=== PATIENT | male | born 1955 | race Two or more races ===

== ENCOUNTER 2020-03-13 09:38 | Emergency (ER) | payer OTHER ==
--- NOTE | 2020-03-13 10:10 | ER Document Report ---
ED Medical Screen (RME) - General Chief Complaint: Leg Pain Stated Complaint: RIGHT LEG PAIN,SWELLING Time Seen by Provider: 03/13/20 10:08 Mode of Arrival: Ambulatory Information source: Patient Notes: 64-year-old male patient presents emergency department chief complaint of right lower extremity swelling and pain. Patient reports swelling at the calf and upper leg near his thigh. He reports there is a bruised area. He denies any history of DVTs but has been checked for them in the past. He is wearing jeans so exam is limited in triage. He does have swelling noted to the right calf. I have greeted and performed a rapid initial assessment of this patient. A comprehensive ED assessment and evaluation of the patient, analysis of test results and completion of the medical decision making process will be conducted by additional ED providers. I have specifically instructed the patient or family members with the patient to immediately return to any nursing staff should anything change in the patient's condition or with their chief complaint. - Related Data Allergies/Adverse Reactions: No Known Allergies Allergy (Verified 03/13/20 10:02) Past Medical History - Social History Chew tobacco use (# tins/day): No Frequency of alcohol use: Heavy Drug Abuse: None Physical Exam - Vital signs Vitals: Temp Pulse Resp BP Pulse Ox 98.2 F 108 H 18 121/73 97 03/13/20 09:50 03/13/20 09:50 03/13/20 09:50 03/13/20 09:50 03/13/20 09:50 Course - Vital Signs Vital signs: Temp Pulse Resp BP Pulse Ox 98.2 F 108 H 18 121/73 97 03/13/20 10:02 03/13/20 09:50 03/13/20 09:50 03/13/20 09:50 03/13/20 09:50
[2020-03-13] MEDS ORDERED: ASPIRIN 325 MG TABLET PO ONE (10:37)
--- NOTE | 2020-03-13 11:04 | ER Document Report ---
ED Extremity Problem, Lower - General Chief Complaint: Leg Pain Stated Complaint: RIGHT LEG PAIN,SWELLING Time Seen by Provider: 03/13/20 10:08 Mode of Arrival: Ambulatory Notes: HPI: 64-year-old male with no past medical history on no medications who presents today with the onset 3 days ago of some pain to the right inner and lateral thigh. He states it radiates down the leg. He started to have pain also to the right calf. No recent trauma. Patient states he had some swelling to his ankle couple years ago that resolved with water pills. He does not take the water pills any longer. Patient is unsure whether this occurred when he was carrying some beer from his garage. He denies any specific joint pain such as the hip or knee. He denies any chest pain or shortness of breath. No history of DVT/PE. No recent trips or travel. ROS: See HPI All other review of systems reviewed and otherwise negative Reviewed vital signs and nursing note as charted by RN. PHYSICAL EXAM: CONSTITUTIONAL: Alert and oriented and responds appropriately to questions. Well-appearing; well-nourished HEAD: Normocephalic; atraumatic CARD: Regular rate and rhythm; no murmurs; symmetric distal pulses RESP: Normal chest excursion without splinting or tachypnea; breath sounds clear and equal bilaterally; no wheezes, no rhonchi, no rales ABD/GI: Normal bowel sounds; non-distended; soft, non-tender; no palpable org anomegaly or masses BACK: The back appears normal and is non-tender to palpation EXT: Patient does have normal range of motion including the right leg including full flexion of the hip and knee. Patient does have some swelling to the thigh down to the ankle. No point tenderness, crepitus, or fluctuance appreciated. No perineal or scrotal swelling or pain. Patient's feet are bilaterally warm but the patient does have a dorsalis pedis pulse that is slightly diminished to the right foot. Strong pulses to the left foot SKIN: Above NEURO: CN 2-12 intact; 5/5 bilateral upper and lower extremity strength with sensation intact to light touch PSYCH: The patient's mood and manner are appropriate. Grooming and personal hygiene are appropriate. - Related Data Allergies/Adverse Reactions: No Known Allergies Allergy (Verified 03/13/20 10:02) Past Medical History - General Information source: Patient - Social History Smoking Status: Current Every Day Smoker Chew tobacco use (# tins/day): No Frequency of alcohol use: Heavy Drug Abuse: None Family History: Reviewed & Not Pertinent Patient has homicidal ideation: No Physical Exam - Vital signs Vitals: Temp Pulse Resp BP Pulse Ox 98.2 F 108 H 18 121/73 97 03/13/20 09:50 03/13/20 09:50 03/13/20 09:50 03/13/20 09:50 03/13/20 09:50 Course - Re-evaluation Re-evalutation: Given the history and physical examination, Doppler ultrasound was ordered in triage. We will also obtain basic labs and an EKG. Patient denies any and all chest pain and shortness of breath. Patient's leg is slightly swollen from the hip down. It is slightly red but not mottled. Full range of motion. Slightly diminished pulses with warm feet. If Doppler ultrasound is unremarkable for blood clot we will most likely perform a CTA of extremity with runoff. Patient is pain-free when resting. 03/13/20 12:00 Labs as recorded. No change in exam. Patient does appear to have a proximal clot. Heart rate 102. I will perform a CTA given the large clot burden. Platelets are above 100. Creatinine as recorded. 03/13/20 12:21 We are still not able to Doppler pulse. We will perform ankle-brachial indexes. We will also provide a heparin bolus and drip. 03/13/20 12:25 EKG shows a heart rate of 94, normal sinus rhythm, Q waves in 3 and aVF, no obvious ST elevation or depression. 03/13/20 13:44 The highest systolic blood pressure in bilateral arms with the right arm and 117. The left ankle systolic blood pressure was 142 in the right ankle was 86. This makes the left ankle-brachial index at 1.2, and the right ankle-brachial index at 0.7. I have called [facility] to speak to the vascular surgeon wallpaper consultant. 03/13/20 13:54 I did speak directly to the vascular surgeon at [facility]. I explained the full history and physical as well as the ankle-brachial index, ultrasound, and exam. He is very comfortable with the ankle-brachial index. He states that catheter directed thrombolyzes has not been shown in multiple studies to be beneficial. He states what he would do is have the patient admitted for 24 hours on heparin therapy while he is bridged on Xarelto. He states leg elevation with a heparin for 24 hours should be sufficient. He does not believe that the patient requires transfer at this time. I will call [facility] for second opinion. 03/13/20 14:28 I called [facility] and spoke with Dr. Grewal, the vascular surgeon. I have explained the full H and P and exam and powershared the images. He stated that he would like to accept the patient but they have no acute beds. He will put patient on a list and then call [facility] to also help transfer. 03/13/20 14:41 I then called and spoke to Dr. Chavez at [facility] the hospital. He states the catheter directed thrombolysis would not be beneficial if it involves the iliac veins. He asked if we are able to perform a high ultrasound or possibly a CT venogram. I then called and spoke to the radiologist here at this facility who states he will send the civil engineering technician back to the bedside. If the patient does receive a venogram he would need another contrast dye load. We will hold on the CTA of the chest at this time. Patient's heart rate is 85 and he still denies any shortness of breath or chest pain. Satting 99%. He is already on heparin. I do not see the utility or benefit currently of obtaining a CTA of the chest. 03/13/20 16:07 I was able to speak directly to radiology who was able to take the patient down to ultrasound once again. They were able to see the common iliacs and there is complete venous occlusion of the iliac vessels. I will call the [facility] transfer center once again and speak to the vascular surgeon Dr. Chavez. - Vital Signs Vital signs: Temp Pulse Resp BP Pulse Ox 98.0 F 108 H 26 H 110/75 93 03/13/20 13:29 03/13/20 09:50 03/13/20 13:45 03/13/20 13:45 03/13/20 13:45 - Laboratory Result Diagrams: 03/13/20 11:27 03/13/20 11:27 Laboratory results interpreted by me: 03/13/20 03/13/20 11:27 11:27 WBC 13.0 H Hgb 17.8 H Hct 53.0 H MCV 103 H MCH 34.7 H RDW 16.3 H Plt Count 126 L Lymph % (Auto) 7.5 L Absolute Neuts (auto) 10.6 H Seg Neutrophils % 81.6 H Creatinine 0.49 L Calcium 8.2 L Critical Care Note - Critical Care Note Total time excluding time spent on procedures (mins): 35 Discharge - Discharge Clinical Impression: Pain of right lower extremity due to ischemia Right leg DVT Qualifiers: Affected thrombotic vein of extremity: iliac Chronicity: acute Qualified Code(s): I82.421 - Acute embolism and thrombosis of right iliac vein Condition: Serious Disposition: OTHER
[2020-03-13 11:36] LABS: ABSOLUTE EOSINOPHILS # (AUTO) 0.1 10^3/uL (0.0-0.6); ABSOLUTE MONOCYTES (AUTO) 1.3 10^3/uL (0.1-1.4); ABSOLUTE NEUT (AUTO) 10.6 10^3/uL (1.7-8.2); BASOPHILS % (AUTO) 0.2 % (0-2); EOSINOPHILS % (AUTO) 0.5 % (0-6); HEMOGLOBIN 17.8 g/dL (13.5-17.0); LYMPHOCYTES % (AUTO) 7.5 % (13-45); MEAN CORPUSCULAR HEMOGLOBIN 34.7 pg (27.0-33.4); MEAN CORPUSCULAR HGB CONC 33.7 g/dL (32.0-36.0); MEAN CORPUSCULAR VOLUME 103 fl (80-97); MONOCYTES % (AUTO) 10.2 % (3-13); PLATELET COUNT 126 10^3/uL (150-450); RED BLOOD COUNT 5.15 10^6/uL (4.35-5.55); RED CELL DISTRIBUTION WIDTH 16.3 % (11.5-14.0); SEGMENTED NEUTROPHILS % (AUTO) 81.6 % (42-78); TOTAL CELLS COUNTED % (AUTO) 100 %
[2020-03-13 11:58] LABS: ANION GAP 8 (5-19); BLOOD UREA NITROGEN 13 mg/dL (7-20); CALCIUM 8.2 mg/dL (8.4-10.2); CARBON DIOXIDE 29 mmol/L (22-30); CHLORIDE 100 mmol/L (98-107); GLUCOSE 89 mg/dL (75-110); POTASSIUM 3.8 mmol/L (3.6-5.0)
[2020-03-13] MEDS ORDERED: ENOXAPARIN SODIUM INJ 80 MG/0.8 ML DISP.SYRIN SUBCUT SCH (12:00)
[2020-03-13 12:11] LABS: INTERNATIONAL RATION (INR) 0.93; PROTHROMBIN TIME 12.7 SEC (11.4-15.4)
[2020-03-13 12:12] LABS: PARTIAL THROMBOPLASTIN TIME 29.2 SEC (23.5-35.8)
[2020-03-13] MEDS ORDERED: HEPARIN SOD (PORCINE) 1,000 UNIT/ML 10 ML VIAL IV ONE (12:22)
--- NOTE | 2020-03-13 12:24 | RADIOLOGY REPORT (SQ) ---
EXAM DESCRIPTION: VENOUS UNILATERAL LOWER IMAGES COMPLETED DATE/TIME: 03/13/2020 12:09 pm REASON FOR STUDY: RLE swelling COMPARISON: None. TECHNIQUE: Dynamic and static louise scale and color images acquired of the right leg venous system. S elected spectral images acquired with additional compression and augmentation maneuvers. The contrala teral common femoral vein and saphenofemoral junction were also imaged. Images stored on PACS. LIMITATIONS: None. FINDINGS: COMMON FEMORAL: There is occlusive thrombus in the common femoral vein FEMORAL: There is occlusive thrombus through the distal superficial femoral vein. POPLITEAL: Normal compression, augmentation. No visualized echogenic material on louise scale. No defec ts on color images. CALF VESSELS: Normal compression, augmentation. No visualized echogenic material on louise scale. No de fects on color images. GSV and SSV: There is thrombus in the greater saphenous vein from the groin to the knee. ANY DEEP VENOUS INSUFFICIENCY: Not evaluated. ANY EVIDENCE OF POPLITEAL CYST: No. OTHER: No other significant finding. CONTRALATERAL COMMON FEMORAL VEIN AND SAPHENOFEMORAL JUNCTION: Normal phasicity, compression and augmentation. No visualized echogenic material on louise scale. No de fects on color images. IMPRESSION: Acute DVT and SVT in the right lower extremity. TECHNICAL DOCUMENTATION: JOB ID: [id number] 2010 [employer]- All Rights Reserved Reading location - IP/workstation name: [email or web address]
[2020-03-13] MEDS: HEPARIN SODIUM,PORCINE/D5W 25,000 UNIT/250 ML RTUINJ IV PRN (13:21)
--- NOTE | 2020-03-13 16:21 | RADIOLOGY REPORT (SQ) ---
EXAM DESCRIPTION: U/S LTD DUPLEX ART/CELINA FLOW IMAGES COMPLETED DATE/TIME: 03/13/2020 4:09 pm REASON FOR STUDY: LEG PAIN/ RADIOLOGIST RT EIV RECOMMENDATION COMPARISON: None. TECHNIQUE: Grayscale and color Doppler evaluation of the right external iliac vein. Images saved to PACs. LIMITATIONS: None. FINDINGS: There is occlusive thrombus in the external iliac vein. The external iliac artery is payton nt. IMPRESSION: Thrombosed external iliac vein. TECHNICAL DOCUMENTATION: JOB ID: [id number] 2010 [employer]- All Rights Reserved Reading location - IP/workstation name: [email or web address]
[2020-03-13 17:34] LABS: APPEARANCE,URINE CLEAR; BILIRUBIN,URINE NEGATIVE (NEGATIVE); COLOR,URINE AMBER; GLUCOSE, URINE NEGATIVE (NEGATIVE); KETONES,URINE 80 mg/dL (NEGATIVE); LEUKOCYTE ESTERASE,URINE NEGATIVE (NEGATIVE); NITRITE,URINE NEGATIVE (NEGATIVE); PROTEIN,URINE 100 mg/dL (NEGATIVE)
--- NOTE | 2020-03-13 19:53 | EKG REPORT ---
SEVERITY:- ABNORMAL ECG - SINUS RHYTHM PROBABLE INFERIOR INFARCT, AGE INDETERMINATE : Confirmed by: Mesfin Aleman 13-Mar-2020 19:52:46
[2020-03-14 04:53] LABS: INTERNATIONAL RATION (INR) 1.17; PROTHROMBIN TIME 15.1 SEC (11.4-15.4)
[2020-03-14 08:09] LABS: PROTHROMBIN TIME 13.4 SEC (11.4-15.4)
[2020-03-14] MEDS: HEPARIN SODIUM,PORCINE/D5W 25,000 UNIT/250 ML RTUINJ IV PRN (10:53)
[2020-03-14 11:05] LABS: ABSOLUTE EOSINOPHILS # (AUTO) 0.1 10^3/uL (0.0-0.6); ABSOLUTE LYMPHOCYTES (AUTO) 0.9 10^3/uL (0.5-4.7); ABSOLUTE MONOCYTES (AUTO) 1.1 10^3/uL (0.1-1.4); ABSOLUTE NEUT (AUTO) 8.8 10^3/uL (1.7-8.2); BASOPHILS % (AUTO) 0.3 % (0-2); EOSINOPHILS % (AUTO) 0.9 % (0-6); HEMATOCRIT 47.1 % (37.9-51.0); LYMPHOCYTES % (AUTO) 8.3 % (13-45); MEAN CORPUSCULAR HEMOGLOBIN 34.9 pg (27.0-33.4); MEAN CORPUSCULAR VOLUME 103 fl (80-97); MONOCYTES % (AUTO) 10.2 % (3-13); PLATELET COUNT 127 10^3/uL (150-450); RED BLOOD COUNT 4.58 10^6/uL (4.35-5.55); RED CELL DISTRIBUTION WIDTH 16.5 % (11.5-14.0); SEGMENTED NEUTROPHILS % (AUTO) 80.3 % (42-78); TOTAL CELLS COUNTED % (AUTO) 100 %
[2020-03-14 12:52] VITALS: BP 115/94
== END 2020-03-14 12:53 | disposition other institution (70) ==
LOC: ER 09:38
DX: I82.421 Acute embolism and thrombosis of right iliac vein (principal); I82.811 Embolism and thrombosis of superficial veins of right lower extremity; M79.661 Pain in right lower leg; M79.651 Pain in right thigh; F17.200 Nicotine dependence, unspecified, uncomplicated
CPT/HCPCS: 93005; 99291; 96375; 96365; 96366; 36415; 85025; 85610; 85730; 80048; 81001; 93971; 93976; 93010; J1644 ×3